=== PATIENT | male | born 1950 | race African-American/Black ===

== ENCOUNTER 2017-04-03 16:16 | Inpatient (IN) | payer MEDICARE ==
[~2017-04-03] VITALS: Ht 185.4 cm; Wt 72.6 kg
--- NOTE | ~2017-04-03 | CON ---
[place], [place] REPORT OF CONSULTATION NAME: LIU GUY UNIT #: [id number] ROOM: [facility] DOCTOR: DELTA KINNEY,FACUNDO BIRTHDATE: [birth year] DOS: HISTORY OF PRESENT ILLNESS: I was called twice to see this patient. The initial time was 2002 and 2134 hours. This gentleman had seen and evaluated by Dr. Early in the Emergency Room earlier in the day and admitted for pneumonia and hypothermia. He has been managed in the Emergency Room by Dr. Early and sent to the ICU for ongoing medical care. I was called to see this 66-year-old male who had a sudden cardiac arrest. He was being transferred from the [facility] to the ICU bed, became limp, rolled his eyes back and was pulseless and apneic. He was noted to be cool, but skin was dry. He arrived to the Emergency Room from one of the local rehab centers for narcotic addiction. He was unable to give any information because of his unconscious state. The nurses did not report any seizure activity or urinary incontinence. Prior to coming to the ICU, he had a central line placed. He received 1 liter of saline in the Emergency Room. He had moderate hypoxemia and was receiving oxygen through nasal cannula. When I arrived, he was being ventilated with a bag valve mask and cardiac compressions were in place. He was unresponsive, no palpable pulses and areflexic . There were no spontaneous respirations. His lungs had scattered bibasilar rales, but no wheezes. Absent heart sounds. The abdomen was slightly rounded, soft. No masses were appreciated and no organomegaly noted. Extremities had no edema or ischemic changes. His abdomen is slightly rounded, but no rigidity and no masses. The patient was intubated by me with a 7.5 ET tube. Mist was seen in the tube and CO2 was positive. Breath sounds were equal bilaterally. There were no breath sounds heard over the epigastrium. Intubation was performed using a videoscope and there were no immediate complications. Multiple doses of epinephrine intravenously and 2 doses of aspirin being intravenously restored the patient's circulation and cardiac activity. Blood pressure was noted to be above 90 systolic. Blood pressure was not stable and I recommended Levophed to be titrated from 4 through 12. There was good response to the Levophed. Resident staff had spoken with Dr. Hannah who recommended the patient to be transferred to [facility] for post-cardiac care. MEDICATIONS RECEIVED: Epinephrine, atropine and hydrochlorothiazide with return to spontaneous circulation. DIAGNOSIS: Cardiac arrest. PROCEDURES: Chest x-ray showed tube in good position. Nasogastric tube was passed by me into the stomach to deflate the stomach and this is likewise seen immediately below the diaphragm in the stomach. A 12-lead EKG showed a sinus tachycardia. This was unchanged from an EKG earlier this afternoon except for the increased activity in the right-sided leads. It should be noted the rectal temperature was 97 degrees Fahrenheit. Second code blue was called at 2134. Patient was bradycardic with a heart rate down to 24 beats per minute. He was given atropine and his rate improved to the 80-90 range. The patient was making some effort to breathe. Condition was still critical and transfer to [facility] was pending. DIAGNOSES: Acute cardiopulmonary arrest, 12-lead EKG interpretation, chest x-ray interpretation, intubation and external pacemaker pads. Patient's [place], [place] REPORT OF CONSULTATION NAME: LIU GUY UNIT #: [id number] ROOM: [facility] DOCTOR: FACUNDO SORENSON MD BIRTHDATE: [birth year] attending physician was notified during the course of his resuscitation. FACUNDO SORENSON MD CM:CONSTR:REPORT OF CONSULTATION 0531 04/05/17 0244 interface
[2017-04-03 16:56] VITALS: BP 122/58
[2017-04-03] MEDS ORDERED: PROVENTIL HFA6.7 GM INH (17:01)
[2017-04-03] MEDS ORDERED: CARVEDILOL12.5 MG PO (17:02)
[2017-04-03] MEDS ORDERED: MAXIDEX OPH (17:02)
[2017-04-03] MEDS ORDERED: DOXEPIN25 MG PO (17:03)
[2017-04-03] MEDS ORDERED: ATARAX,VISTARIL50 MG PO (17:03)
[2017-04-03] MEDS ORDERED: 'CLONIDINE0.1 MG PO (17:04)
[2017-04-03] MEDS ORDERED: MELATONIN5 M6 PO (17:05)
[2017-04-03] MEDS ORDERED: BACLOFEN20 M1 PO (17:05)
[2017-04-03] MEDS ORDERED: TRAZODONE50 MG PO (17:06)
[2017-04-03] MEDS ORDERED: BENTYL10 MG PO (17:07)
[2017-04-03 17:34] VITALS: BP 125/86
[2017-04-03 18:17] LABS: BASO # 0.1 10*3/uL (0.0-0.1); BASO % 1.3 % (0.0-1.0); EOS # 0.1 10*3/uL (0.0-0.4); EOS % 2.3 % (1.0-4.0); HEMOGLOBIN 12.8 g/dl (14.0-18.0); LYMPH # 1.8 10*3/uL (1.3-4.4); LYMPH % 45.2 % (27.0-41.0); MEAN CELL VOLUME 99.8 fl (80.0-94.0); MEAN CORPUSCULAR HGB 30.4 pg (27.0-31.0); MEAN CORPUSCULAR HGB CONC 30.5 g/dl (33.0-37.0); MEAN PLATELET VOLUME 9.3 fl (9.6-12.3); MONO # 0.6 10*3/uL (0.1-1.0); MONO % 15.5 % (3.0-9.0); NEUT # 1.4 10*3/uL (2.3-7.9); NEUT % 35.4 % (47.0-73.0); NUCLEATED RED BLOOD CELL 0.8 % (0.0-0.0); PLATELET COUNT AUTOMATED 367 10*3/uL (130-400); RED BLOOD COUNT 4.21 10*6/uL (4.50-5.90); RED CELL DISTRI WIDTH 14.2 % (0-14.5); WHITE BLOOD COUNT 3.9 10*3/uL (4.8-10.8)
[2017-04-03 18:34] LABS: CREATININE 3.71 mg/dL (0.70-1.30); TOTAL PROTEIN 7.4 gm/dL (6.4-8.2)
[2017-04-03 18:37] LABS: TROPONIN I 0.097 ng/ml (<0.045)
[2017-04-03 18:53] VITALS: BP 140/80
[2017-04-03 19:40] VITALS: BP 139/91
[2017-04-03 20:56] LABS: ALBUMIN 2.4 gm/dl (3.1-4.5); CREATININE 3.46 mg/dL (0.70-1.30); POTASSIUM 5.7 mmol/L (3.5-5.1); TOTAL PROTEIN 6.3 gm/dL (6.4-8.2)
[2017-04-03 21:01] LABS: ABG HCO3 15.3 mmol/l (22-26); ABG O2 SATURATION 4.6 % (95-97); ARTERIAL BLOOD GAS PCO2 63.4 mmHg (35-45)
[2017-04-03 21:02] LABS: ABG HCO3 8.6 mmol/l (22-26); ABG O2 SATURATION 80.2 % (95-97); ARTERIAL BLOOD GAS PCO2 40.1 mmHg (35-45); ARTERIAL BLOOD GAS PO2 74.4 mmHg (80-90)
[2017-04-03 21:02] LABS: TROPONIN I 0.118 ng/ml (<0.045)
[2017-04-03 21:06] LABS: ABG BASE EXCESS -22.9 mmol/L (-2.0-2.0)
[2017-04-03 21:07] LABS: ABG BASE EXCESS -16.6 mmol/L (-2.0-2.0); ARTERIAL BLOOD GAS PH 7.007 (7.35-7.45); ARTERIAL BLOOD GAS PO2 10.4 mmHg (80-90)
[2017-04-03 21:07] LABS: HEMATOCRIT 42.2 % (42.0-52.0); HEMOGLOBIN 12.4 g/dl (14.0-18.0); MEAN CELL VOLUME 104.2 fl (80.0-94.0); MEAN CORPUSCULAR HGB 30.6 pg (27.0-31.0); MEAN CORPUSCULAR HGB CONC 29.4 g/dl (33.0-37.0); MEAN PLATELET VOLUME 9.8 fl (9.6-12.3); NUCLEATED RED BLOOD CELL 0.1 10*3/uL (0.0-0.0); NUCLEATED RED BLOOD CELL 1.4 % (0.0-0.0); PLATELET COUNT AUTOMATED 257 10*3/uL (130-400); RED BLOOD COUNT 4.05 10*6/uL (4.50-5.90); WHITE BLOOD COUNT 7.2 10*3/uL (4.8-10.8)
[2017-04-03 21:07] LABS: ARTERIAL BLOOD GAS PH 6.96 (7.35-7.45)
[2017-04-03 21:11] LABS: PLATELET SUFFICIENCY NORMAL (NORMAL); TOTAL CELLS COUNTED 100 #CELLS
[2017-04-03 21:12] LABS: BURR CELLS MANY
[2017-04-03 22:51] LABS: URINE AMPHETAMINES < 1000 (1000ng/ml); URINE BARBITURATES < 200 (200ng/ml); URINE BENZODIAZEPINES > 200 (200ng/ml); URINE CANNABINOIDS (THC) < 50 (50ng/ml); URINE COCAINE < 300 (300ng/ml); URINE METHADONE < 300 (300ng/ml); URINE OPIATES < 300 (300ng/ml); URINE PHENCYCLIDINE < 25 (25ng/ml)
== END 2017-04-03 21:56 | disposition expired | DRG 871 ==
LOC: ED 16:16 → EDHOLD 18:48 → ICCU 19:09
PROVIDERS: Hospitalist; Internal Medicine; Student in an Organized Health Care Education/Training Program
PROC: 0BH18EZ Insertion of Endotracheal Airway into Trachea, Via Natural or Artificial Opening Endoscopic (ICD-10-PCS; principal; 2017-04-03)
PROC: 02HV33Z Insertion of Infusion Device into Superior Vena Cava, Percutaneous Approach (ICD-10-PCS; principal; 2017-04-03)
PROC: 5A12012 Performance of Cardiac Output, Single, Manual (ICD-10-PCS; principal; 2017-04-03)
PROC: B548ZZA Ultrasonography of Superior Vena Cava, Guidance (ICD-10-PCS; principal; 2017-04-03)
PROC: 5A2204Z Restoration of Cardiac Rhythm, Single (ICD-10-PCS; 2017-04-03)
DX: A41.9 Sepsis, unspecified organism (principal); N17.0 Acute kidney failure with tubular necrosis; I46.9 Cardiac arrest, cause unspecified; E44.0 Moderate protein-calorie malnutrition; K81.0 Acute cholecystitis; J18.1 Lobar pneumonia, unspecified organism; E87.0 Hyperosmolality and hypernatremia; I31.3 Pericardial effusion (noninflammatory); R18.8 Other ascites; J44.0 Chronic obstructive pulmonary disease with (acute) lower respiratory infection; J98.11 Atelectasis; R09.02 Hypoxemia; T68.XXXA Hypothermia, initial encounter; E87.5 Hyperkalemia; R00.1 Bradycardia, unspecified; R65.20 Severe sepsis without septic shock; F11.10 Opioid abuse, uncomplicated; F17.210 Nicotine dependence, cigarettes, uncomplicated; I10 Essential (primary) hypertension; G47.00 Insomnia, unspecified; D53.9 Nutritional anemia, unspecified; D72.810 Lymphocytopenia; Z68.21 Body mass index [BMI] 21.0-21.9, adult; Z79.899 Other long term (current) drug therapy